=== PATIENT | female | born 2000 | race African-American/Black ===

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

== ENCOUNTER 2018-05-23 20:02 | Inpatient (IN) | payer MEDICAID ==
[2018-05-23 21:02] LABS: APPEARANCE,URINE CLOUDY; BILIRUBIN,URINE NEGATIVE (NEGATIVE); COLOR,URINE YELLOW; GLUCOSE, URINE NEGATIVE (NEGATIVE); KETONES,URINE NEGATIVE (NEGATIVE); LEUKOCYTE ESTERASE,URINE MODERATE (NEGATIVE); NITRITE,URINE NEGATIVE (NEGATIVE); PROTEIN,URINE 30 mg/dL (NEGATIVE); URINE SPECIFIC GRAVITY 1.028
[2018-05-23 21:19] LABS: URINE AMPHETAMINES SCREEN NEGATIVE; URINE BARBITURATES SCREEN NEGATIVE; URINE BENZODIAZEPINES SCREEN NEGATIVE; URINE COCAINE SCREEN NEGATIVE; URINE MARIJUANA (THC) SCREEN NEGATIVE; URINE METHADONE SCREEN NEGATIVE; URINE PHENCYCLIDINE SCREEN NEGATIVE
[2018-05-23] MEDS ORDERED: RINGERS SOLUTION,LACTATED 1,000 ML IV ONE (23:09)
[2018-05-23] MEDS ORDERED: RINGERS SOLUTION,LACTATED 1,000 ML IV PRN (23:09)
--- NOTE | 2018-05-23 23:30 | Admission Physical ---
Datetime Report Generated by CPN: 05/23/2018 23:30 CURRENT ADMISSION Chief Complaint: Uterine Contractions Indication for Induction: Not Applicable Admit Impression : Term, Intrauterine ; Active Labor Admit Plan: Admit to Unit; Initiate Labor Protocol ALLERGIES Medication Allergies: No Known Allergies (12/07/2017) OBSTETRICAL HISTORY EDC: 05/18/2018 00:00 : 1 Para: 0 Gestational Diabetes: No Rh Sensitization: No Incompetent Cervix: No MEGGAN: No Infertility: No ART Treatment: No Uterine Anomaly: No IUGR: No Hx Previous C/S: No Macrosomia: No Hx Loss/Stillborn: No PIH: No Hx : No Placenta Previa/Abruption: No Depression/PP Depression: No PTL/PROM: No Post Hemorrhage: No Obstetrical History Comments: g1- current - late care at 25 weeks SEE RECORDS Alcohol: No Marijuana : No Cocaine: No Other Illicit Drugs: No Cigarettes: Never Smoker. 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 Surgery: No Heart Disease: No Hosp/Surgery: No Autoimmune Disorder: No Anesthetic Complications: No Kidney Disease: No Abnormal Pap Smear: No Neuro/Epilepsy: No Psychiatric Disorders: No Other Medical Diseases: No Hepatitis/Liver Disease: No Significant Family History: No Varicosities/Phlebitis: No Trauma/Violence : No Thyroid Dysfunction: No INFECTIOUS HISTORY Gonorrhea: No Genital Herpes: No Chlamydia: No Tuberculosis: No Syphilis: No Hepatitis: No HIV/AIDS Exposure: No Rash or Viral Illness: No HPV: No PHYSICAL EXAM General: Normal HEENT: Normal Neurologic: Normal Thyroid: Deferred Heart: Normal Lungs: Normal Breast: Deferred Back: Normal Abdomen: Normal Genitourinary Exam: Normal Extremities: Normal DTRs: Normal Pelvic Type: Adequate Vital Signs: Reviewed VAGINAL EXAM Dilatation: 5 Effacement: 90 Station: 0 Contraction Comments: q 2-3 MEMBRANES Membranes: Intact FETUS A EGA: 40.5 Monitoring: External US FHR- Baseline: 125 Variability: Moderate 6-25bpm Accelerations: 15X15 Decelerations: None FHR Category: Category I Presentation: Vertex Admit Comment: 17yo at 40+5ega dated by 25wks US. late to care at 25wks. her mother is admitted to floor above and she was begining to have contractions. She was walking and changed her cervix from 3 to 5 cm. GBS negative. She desires epidural. Anticipate . Augment if needed. PLANS FOR LABOR AND DELIVERY Labor and Delivery: None; Cord Blood Banking Pain Management: Natural Feeding Preference: Formula Benefit of Breast Feed Discussed: Yes Circumcision: Yes INFORMED CONSENT Informed Consent Obtained: Vaginal Delivery; Risks, Benefits and Alternatives Discussed Signature: with User ID: [email or web address]
[2018-05-23 23:34] LABS: ABSOLUTE EOSINOPHILS # (AUTO) 0.1 10^3/uL (0.0-0.6); ABSOLUTE LYMPHOCYTES (AUTO) 1.3 10^3/uL (0.5-4.7); ABSOLUTE MONOCYTES (AUTO) 0.7 10^3/uL (0.1-1.4); ABSOLUTE NEUT (AUTO) 11.9 10^3/uL (1.7-8.2); BASOPHILS % (AUTO) 0.1 % (0-2); EOSINOPHILS % (AUTO) 0.6 % (0-6); HEMATOCRIT 35.6 % (36.0-47.0); HEMOGLOBIN 12.3 g/dL (12.0-15.5); LYMPHOCYTES % (AUTO) 9.3 % (13-45); MEAN CORPUSCULAR HEMOGLOBIN 30.7 pg (27.0-33.4); MEAN CORPUSCULAR HGB CONC 34.6 g/dL (32.0-36.0); MEAN CORPUSCULAR VOLUME 89 fl (80-97); MONOCYTES % (AUTO) 5.1 % (3-13); PLATELET COUNT 203 10^3/uL (150-450); RED BLOOD COUNT 4.01 10^6/uL (3.72-5.28); RED CELL DISTRIBUTION WIDTH 13.2 % (11.5-14.0); SEGMENTED NEUTROPHILS % (AUTO) 84.9 % (42-78); TOTAL CELLS COUNTED % (AUTO) 100 %; WHITE BLOOD COUNT 13.9 10^3/uL (4.0-10.5)
[2018-05-23] MEDS ORDERED: LIDOCAINE 1% INJ-PF (10 MG/ML) 30 ML SDV ONE (23:34)
[2018-05-23] MEDS ORDERED: BUPIVACAINE HCL 0.25 % INJ/PF (2.5 MG/1 ML) 30 ML VIAL ONE (23:34)
[2018-05-23] MEDS ORDERED: OXYTOCIN/NORMAL SALINE 20 UNIT/1,000 ML RTUINJ ONE (23:34)
[2018-05-23] MEDS ORDERED: PHENYLEPHRINE HCL INJ/PF 10 MG/1 ML SDV ONE (23:34)
[2018-05-23] MEDS ORDERED: MISOPROSTOL 0.2 MG TABLET ONE (23:34)
[2018-05-23] MEDS ORDERED: FENTANYL CITRATE INJ/PF 100 MCG/2 ML AMPUL ONE (23:34)
[2018-05-23] MEDS ORDERED: FENTANYL/BUPIVACAINE/NS/PF 300 MCG/150 ML RTUINJ EPI ONE (23:34)
[2018-05-23] MEDS ORDERED: EPHEDRINE SULFATE INJ 50 MG/1 ML AMPULE ONE (23:34)
[2018-05-23] MEDS ORDERED: OXYTOCIN 10 UNIT/ML VIAL ONE (23:34)
[2018-05-23] MEDS ORDERED: LIDOCAINE 2%/EPINEPHRINE INJ 20 ML VIAL ONE (23:52)
[2018-05-23] MEDS ORDERED: LIDOCAINE 1.5%/EPINEPHRINE INJ-PF 30 ML SDV ONE (23:57)
[2018-05-24] MEDS ORDERED: PROMETHAZINE HCL INJ 25 MG/1 ML VIAL IV PRN (01:44)
[2018-05-24] MEDS ORDERED: ACETAMINOPHEN 325 MG TABLET PO PRN (01:44)
[2018-05-24] MEDS ORDERED: DIPHENHYDRAMINE HCL 25 MG CAPSULE PO PRN (01:44)
[2018-05-24] MEDS ORDERED: PSEUDOEPHEDRINE HCL 30 MG TABLET PO PRN (01:44)
[2018-05-24] MEDS ORDERED: ACETAMINOPHEN WITH CODEINE #3 TABLET PO PRN ×2 (01:44)
[2018-05-24] MEDS ORDERED: BENZOCAINE/MENTHOL AEROSOL SPRAY 56 ML TOP PRN (01:44)
[2018-05-24] MEDS ORDERED: MEASLES,MUMPS&RUBELLA VACC/PF 0.5 ML VIAL SUBCUT PRN (01:44)
[2018-05-24] MEDS ORDERED: MAGNESIUM HYDROXIDE SUSP 30 ML UDCUP PO PRN (01:44)
[2018-05-24] MEDS ORDERED: PROMETHAZINE HCL 25 MG SUPP.RECT PR PRN (01:44)
[2018-05-24] MEDS ORDERED: ZOLPIDEM TARTRATE 5 MG TABLET PO PRN (01:44)
[2018-05-24] MEDS ORDERED: DIBUCAINE 1% OINTMENT 28 GM TP PRN (01:44)
[2018-05-24] MEDS ORDERED: NA PHOS,M-B/NA PHOS,DI-BA (ADULT) 133 ML ENEMA PR PRN (01:44)
[2018-05-24] MEDS ORDERED: DIPH/PERTUSS(ACELL)/TETANUS VAC/PF 0.5 ML SYR (>=10YO) IM PRN (01:44)
[2018-05-24] MEDS ORDERED: GLYCERIN/WITCH HAZEL LEAF 1 EACH MED..PAD TP PRN (01:44)
[2018-05-24] MEDS ORDERED: OXYTOCIN/NORMAL SALINE 20 UNIT/1,000 ML RTUINJ IV PRN (01:44)
[2018-05-24] MEDS ORDERED: PROMETHAZINE HCL 25 MG TABLET PO PRN (01:44)
--- NOTE | 2018-05-24 02:22 | Warning Signs in Babies ---
VOD Warning Signs Datetime Report Generated by [facility]: 05/24/2018 02:21 VOD#608 -Warning Signs in Babies: Needs to be viewed. (05/23/2018 20:25:Shakila Milton RN)
--- NOTE | 2018-05-24 03:27 | Delivery Summary ---
Del Sum A-C Datetime Report Generated by CPN: 05/24/2018 03:27 DELIVERY PERSONNEL DELIVERY PERSONNEL: [id number] Delivery Doctor:: Kiley Hurley MD Labor and Delivery Nurse:: Iesha Flores RN Labor and Delivery Nurse:: Shakila Milton RN Nursery Nurse:: Li Levine RN Nursery Nurse:: Trish Graham RN Farm General Manager/EMPLOYEE DEVELOPMENT DIRECTOR: Joana Sebastian, ST MATERNAL INFORMATION Delivery Anesthesia: Epidural Medications After Delivery: Pitocin Drip 20 Units/1000ml NSS Provider Comments: VMI delivered in Direct OA presenation. NO nuchal cord. Shoulders and body delivered without difficulty. Noted meconium at delivery of the head. Cord doubly clamped and cut and infant to maternal abdomen with nursery care for NRP. Placenta delivered intact spontaneously. FF at U. Left labial laceration repaired in usual fashion. Good hemostasis. Baby to Nursery for evaluation. Mother stable upon provider leaving the room. LABOR SUMMARY EDC: 05/18/2018 00:00 No. Babies in Womb: 1 Attempted: No Labor Anesthesia: Epidural LABOR INFORMATION Reason for Induction: Not Applicable Onset of Labor: 05/23/2018 23:04 Complete Dilatation: 05/24/2018 00:34 Other Ripening Agents: NA Oxytocin: N/A Group B Beta Strep: negative Steroids Given: None Reason Steroids Not Administered: Not Applicable MEMBRANES Membranes Rupture Method: Artificial Rupture of Membranes: 05/24/2018 00:20 Length of Rupture (hr): 1.18 Amniotic Fluid Color: Clear Amniotic Fluid Amount: Moderate Amniotic Fluid Odor: Normal STAGES OF LABOR Stage 1 hr: 1 Stage 1 min: 30 Stage 2 hr: 0 Stage 2 min: 57 Stage 3 hr: 0 Stage 3 min: 3 Total Time in Labor hr: 2 Total Time in Labor min: 30 VAGINAL DELIVERY Episiotomy: None Laceration #1: Vaginal Laceration Extension #1: N/A Laceration Repair: Yes Laceration Repair Note: left labial laceration repaired in usual fashion with good hemostasis Sponge Count Correct: Yes Sharps Count Correct: Yes CSECTION DELIVERY Primary Indication: N/A Secondary Indication: N/A CSection Incidence: N/A Labor: N/A Elective: N/A CSection Incision: N/A BABY A INFORMATION Infant Delivery Date/Time: 05/24/2018 01:31 Method of Delivery: Vaginal Born in Route : No : N/A Forceps: N/A Vacuum Extraction: N/A Shoulder Dystocia : No PRESENTATION/POSITION BABY A Presentation: Cephalic Cephalic Presentation: Vertex Vertex Position: direct OA Breech Presentation: N/A PLACENTA INFORMATION BABY A Placenta Delivery Time : 05/24/2018 01:34 Placenta Method of Delivery: Spontaneous Placenta Status: Delivered SCORES BABY A Heart Rate 1 min: >100 bpm Resp Effort 1 min: Slow, Irregular Reflex Irritability 1 min: Grimace Muscle Tone 1 min: Flaccid Color 1 min: Blue/Pale SCORE 1 MIN: 4 Heart Rate 5 min: >100 bpm Resp Effort 5 min: Slow, Irregular Reflex Irritability 5 min: Grimace Muscle Tone 5 min: Some Flexion of Extremities Color 5 min: Body [place], Extremities Blue SCORE 5 MIN: 6 Heart Rate 10 min: >100 bpm Resp Effort 10 min: Good Cry Reflex Irritability 10 min: Cough or Sneeze or Pulls Away Muscle Tone 10 min: Active Motion Color 10 min: Body [place], Extremities Blue SCORE 10 MIN: 9 INFORMATION BABY A Gestational Age at Delivery: 40.6 Gestational Status: Full Term- 39- 40.6 Weeks Outcome : Liveborn Condition : Stable Infant Sex: Male IDENTIFICATION BABY A Verification Date/Time: 05/24/2018 02:25 ID Band Number: [id number] Mother's Name Verified: Yes RN Verifying : Sandra, A RN Additional Verifying Personnel: Evelyn Herman RN WEIGHT/LENGTH BABY A Birthweight (gm): 2830 Weight (lb): 6 Infant Weight (oz): 4 Infant Length (in): 20.50 Length (cm): 52.07 CORD INFORMATION BABY A No. Cord Vessels: 3 Nuchal Cord : N/A Cord Blood Taken: Yes-For Storage (Mom's Blood type +) Infant Suction: Mouth; Nose ASSESSMENT BABY A Complications: None Physical Findings at Delivery: Caput Succedaneum; Molding of the Head Physical Findings- Other: See full nursery prevocational/rehabilitation counselor Respirations: Grunting; Intercostal Retractions; Nasal Flaring Skin to Skin: No Care By: Mariann Levine RN Transferred To: Nursery BABY B INFORMATION : N/A SIGNATURES Signature: with User ID: [email or web address]
[2018-05-24] MEDS: IBUPROFEN 800 MG TABLET PO SCH ×3 (05:06→22:01)
--- NOTE | 2018-05-24 10:40 | PDOC PROGRESS REPORT ---
Subjective-OB Progress Note for:: 05/24/18 - Delivery Day, pt unable to void and needed I&O cath at 0500, with 800 ml urine obtained. Still has not voided, Pt encouraged to try to sit down, relax and void within the next hour. Doing well otherwise. B+, bottlefeeding Physical Exam (OB) Vital Signs: Temp Pulse Resp BP Pulse Ox 97.3 F 96 H 18 116/69 98 05/24/18 04:10 05/24/18 04:10 05/24/18 04:10 05/24/18 04:10 05/24/18 04:10 Intake & Output 05/23/18 05/24/18 05/25/18 06:59 06:59 06:59 Output Total 800 Balance -800 - General General Appearance: Appears well, Alert In distress: None - PIH/Pre-Eclampsia DTR's: 2 + Clonus: Negative Headache: Absent Epigastric Pain: No Visual Changes: No - Lochia Lochia Amount: Scant < 10 ml Lochia Color: Rubra/Red - Abdomen Description: Tender, Soft Hernia Present: No Fundal Description: Firm, Midline Describe if Not Midline: left of midline Fundal Height: u/u - u/2 - Respiratory Respiratory Status: No respiratory distress - Abdominal Distension: No distension - Genitourinary Genitourinary Note: to void - Extremities Upper extremity: Normal inspection Lower extremities: Normal inspection - Neurological Cognition: Normal Orientation: AAOx4 - Psychological Associated symptoms: Normal affect, Normal mood - Skin Skin Temperature: Warm Skin Moisture: Dry Objective-Diagnostic Laboratory: 05/23/18 23:15 05/23/18 05/23/18 05/23/18 20:15 23:15 23:15 WBC 13.9 H RBC 4.01 Hgb 12.3 Hct 35.6 L MCV 89 MCH 30.7 MCHC 34.6 RDW 13.2 Plt Count 203 Seg Neutrophils % 84.9 H Lymphocytes % 9.3 L Monocytes % 5.1 Eosinophils % 0.6 Basophils % 0.1 Absolute Neutrophils 11.9 H Absolute Lymphocytes 1.3 Absolute Monocytes 0.7 Absolute Eosinophils 0.1 Absolute Basophils 0.0 Urine Color YELLOW Urine Appearance CLOUDY Urine pH 6.0 Ur Specific [place] 1.028 Urine Protein 30 H Urine Glucose (UA) NEGATIVE Urine Ketones NEGATIVE Urine Blood LARGE H Urine Nitrite NEGATIVE Ur Leukocyte Esterase MODERATE H Blood Type B POSITIVE Antibody Screen NEGATIVE Assessment and Plan(PN) - Assessment and Plan (1) Active labor at term Is this a current diagnosis for this admission?: Yes (2) Late care affecting Qualifiers: Trimester: unspecified trimester Qualified Code(s): O09.30 - Supervision of with insufficient care, unspecified trimester Is this a current diagnosis for this admission?: Yes (3) Meconium in amniotic fluid Is this a current diagnosis for this admission?: Yes - Time Spent with Patient Time with patient: Less than 15 minutes Smoking Education Provided: Over 3 minutes - Disposition Within: within 48 hours - encouraged pt to attempt to void, otherwise will need to be strait cathed again. May need Reyes cath replaced if unable to void during first shift.
[2018-05-24] MEDS: SENNOSIDES/DOCUSATE 8.6-50 MG 1 EACH TABLET PO SCH (11:01)
[2018-05-24] MEDS: FERROUS SULFATE 325 MG TABLET PO SCH ×2 (11:01→18:41)
[2018-05-24] MEDS: DOCUSATE SODIUM 100 MG CAPSULE PO SCH ×2 (11:01→18:41)
[2018-05-24] MEDS: FAMOTIDINE 20 MG TABLET PO SCH ×2 (11:01→22:03)
[2018-05-24] MEDS: PRENATAL VITAMIN W DHA CAPSULE PO SCH (11:01)
[2018-05-25] MEDS: IBUPROFEN 800 MG TABLET PO SCH ×3 (05:26→21:47)
[2018-05-25 08:27] LABS: HEMATOCRIT 32.1 % (36.0-47.0); MEAN CORPUSCULAR HGB CONC 34.3 g/dL (32.0-36.0); MEAN CORPUSCULAR VOLUME 91 fl (80-97); PLATELET COUNT 176 10^3/uL (150-450); RED BLOOD COUNT 3.55 10^6/uL (3.72-5.28); RED CELL DISTRIBUTION WIDTH 13.3 % (11.5-14.0); WHITE BLOOD COUNT 11.8 10^3/uL (4.0-10.5)
[2018-05-25] MEDS: FAMOTIDINE 20 MG TABLET PO SCH ×2 (10:18→21:47)
[2018-05-25] MEDS: DOCUSATE SODIUM 100 MG CAPSULE PO SCH ×2 (10:18→18:43)
[2018-05-25] MEDS: SENNOSIDES/DOCUSATE 8.6-50 MG 1 EACH TABLET PO SCH (10:18)
[2018-05-25] MEDS: FERROUS SULFATE 325 MG TABLET PO SCH ×2 (10:18→18:43)
[2018-05-25] MEDS: PRENATAL VITAMIN W DHA CAPSULE PO SCH (10:18)
--- NOTE | 2018-05-25 10:51 | PDOC PROGRESS REPORT ---
Subjective-OB Progress Note for:: 05/25/18 - PP Day #1, doing well, voiding w/out difficulty now. bottlefeeding, B+ Physical Exam (OB) Vital Signs: Temp Pulse Resp BP Pulse Ox 98.0 F 76 16 125/87 H 100 05/25/18 08:35 05/25/18 08:35 05/25/18 08:35 05/25/18 08:35 05/25/18 08:35 Intake & Output 05/24/18 05/25/18 05/26/18 06:59 06:59 06:59 Intake Total 300 Output Total 800 Balance -800 300 - General General Appearance: Appears well, Alert In distress: None - PIH/Pre-Eclampsia DTR's: 2 + Clonus: Negative Headache: Absent Epigastric Pain: No Visual Changes: No - Lochia Lochia Amount: Scant < 10 ml Lochia Color: Rubra/Red - Abdomen Description: Tender, Soft Hernia Present: No Fundal Description: Firm, Midline Describe if Not Midline: left of midline Fundal Height: u/u - u/2 - Respiratory Respiratory Status: No respiratory distress - Abdominal Distension: No distension Tenderness: Nontender - Genitourinary Genitourinary Note: voiding - Extremities Upper extremity: Normal inspection Lower extremities: Normal inspection - Neurological Cognition: Normal Orientation: AAOx4 - Psychological Associated symptoms: Normal affect, Normal mood - Skin Skin Temperature: Warm Skin Moisture: Dry Objective-Diagnostic Laboratory: 05/25/18 07:30 05/25/18 07:30 WBC 11.8 H RBC 3.55 L Hgb 11.0 L Hct 32.1 L MCV 91 MCH 31.0 MCHC 34.3 RDW 13.3 Plt Count 176 Assessment and Plan(PN) - Assessment and Plan (1) Active labor at term Is this a current diagnosis for this admission?: Yes (2) Late care affecting Qualifiers: Trimester: unspecified trimester Qualified Code(s): O09.30 - Supervision of with insufficient care, unspecified trimester Is this a current diagnosis for this admission?: Yes (3) Meconium in amniotic fluid Is this a current diagnosis for this admission?: Yes (4) Normal course Is this a current diagnosis for this admission?: Yes - Time Spent with Patient Time with patient: Less than 15 minutes Smoking Education Provided: Over 3 minutes Medications reviewed and adjusted accordingly: Yes - Disposition Anticipated Discharge: Home Within: within 24 hours
[2018-05-26] MEDS: IBUPROFEN 800 MG TABLET PO SCH ×2 (06:46→14:01)
--- NOTE | 2018-05-26 09:39 | PDOC PROGRESS REPORT ---
Subjective-OB Progress Note for:: 05/26/18 Subjective: doing well, no c/o, ready to go home Physical Exam (OB) Vital Signs: Temp Pulse Resp BP Pulse Ox 97.9 F 78 16 109/75 100 05/26/18 07:40 05/26/18 07:40 05/26/18 07:40 05/26/18 07:40 05/26/18 07:40 Intake & Output 05/25/18 05/26/18 05/27/18 06:59 06:59 06:59 Intake Total 300 Balance 300 - PIH/Pre-Eclampsia DTR's: 2 + Clonus: Negative Headache: Absent Epigastric Pain: No Visual Changes: No - Lochia Lochia Amount: Scant < 10 ml Lochia Color: Rubra/Red - Abdomen Description: Tender, Soft Hernia Present: No Fundal Description: Firm, Midline Describe if Not Midline: left of midline Fundal Height: u/u - u/2 Objective-Diagnostic Laboratory: 05/25/18 07:30 05/23/18 20:15 Clean Catch Midstream Urine Culture - Final Mixed Urogenital Shawna Assessment and Plan(PN) - Assessment and Plan (1) Normal course Is this a current diagnosis for this admission?: Yes (2) Meconium in amniotic fluid Is this a current diagnosis for this admission?: Yes (3) Active labor at term Is this a current diagnosis for this admission?: Yes (4) Late care affecting Qualifiers: Trimester: unspecified trimester Qualified Code(s): O09.30 - Supervision of with insufficient care, unspecified trimester Is this a current diagnosis for this admission?: Yes (5) Vaginal delivery Is this a current diagnosis for this admission?: Yes - Time Spent with Patient Time with patient: Less than 15 minutes Smoking Education Provided: Over 3 minutes Medications reviewed and adjusted accordingly: Yes - Disposition Anticipated Discharge: Home Within: within 24 hours
--- NOTE | 2018-05-26 09:43 | PDOC DISCHARGE SUMMARY ---
Final Diagnosis Discharge Date: 05/26/18 - Final Diagnosis (1) Normal course Is this a current diagnosis for this admission?: Yes (2) Meconium in amniotic fluid Is this a current diagnosis for this admission?: Yes (3) Active labor at term Is this a current diagnosis for this admission?: Yes (4) Late care affecting Is this a current diagnosis for this admission?: Yes (5) Vaginal delivery Is this a current diagnosis for this admission?: Yes Discharge Data - Discharge Medication Home Medications: Amoxicillin 1 tab PO TID #30 tab 03/26/15 Loratadine 10 mg PO DAILY 03/26/15 Vit,Calc78/Iron/Folic [Prenatabs FA Tablet] 1 each PO DAILY #30 tablet 12/07/17 Gestational Age: 40.6 Reason(s) for Admission: Onset of Labor Procedures: NST, Ultrasound Intrapartum Procedure(s): Spontaneous Vaginal Delivery Complication(s): Laceration-Labial Laceration-Degree: 1st - Diagnosis Test Laboratory: Temp Pulse Resp BP Pulse Ox 97.9 F 78 16 109/75 100 05/26/18 07:40 05/26/18 07:40 05/26/18 07:40 05/26/18 07:40 05/26/18 07:40 05/23/18 05/23/18 05/25/18 20:15 23:15 07:30 RBC 4.01 3.55 L Hgb 12.3 11.0 L Hct 35.6 L 32.1 L Urine Opiates Screen NEGATIVE - Discharge information/Instructions Discharge Activity: Activity As Tolerated, No Lifting Over 10 Pounds, No Lifting/Push/Pulling, Pelvic Rest Discharge Diet: As Tolerated, Regular Disposition: HOME, SELF-CARE Follow up with: [facility] in: 2, Weeks
[2018-05-26] MEDS: DOCUSATE SODIUM 100 MG CAPSULE PO SCH (10:22)
[2018-05-26] MEDS: SENNOSIDES/DOCUSATE 8.6-50 MG 1 EACH TABLET PO SCH (10:23)
[2018-05-26] MEDS: FERROUS SULFATE 325 MG TABLET PO SCH (10:23)
[2018-05-26] MEDS: FAMOTIDINE 20 MG TABLET PO SCH (10:23)
[2018-05-26] MEDS: PRENATAL VITAMIN W DHA CAPSULE PO SCH (10:23)
[2018-05-26 11:21] VITALS: BP 109/74
== END 2018-05-26 15:20 | disposition home or self-care (01) | DRG 807 ==
LOC: LC 20:02 → LR 23:10 → 2S 05-24 04:12
PROVIDERS: ADMIT Student in an Organized Health Care Education/Training Program; ATTEND Student in an Organized Health Care Education/Training Program
PROC: 10E0XZZ Delivery of Products of Conception, External Approach (ICD-10-PCS; principal; 2018-05-24)
PROC: 0UQMXZZ Repair Vulva, External Approach (ICD-10-PCS; 2018-05-24)
PROC: 10907ZC Drainage of Amniotic Fluid, Therapeutic from Products of Conception, Via Natural or Artificial Opening (ICD-10-PCS; 2018-05-24)
PROC: 4A1HX4Z Monitoring of Products of Conception, Cardiac Electrical Activity, External Approach (ICD-10-PCS; 2018-05-24)
DX: O77.0 Labor and delivery complicated by meconium in amniotic fluid (principal); Z37.0 Single live birth; O70.0 First degree perineal laceration during delivery; Z3A.40 40 weeks gestation of pregnancy
CPT/HCPCS: 36415; 59025; 80307; 81005; 85025; 85027; 86592; 86850; 86900; 86901; 87086; 88307; J2370; J2590; J3010; J3490

== ENCOUNTER 2018-11-16 09:43 | Emergency (ER) | payer MEDICAID ==
[2018-11-16] MEDS ORDERED: AMOXICILLIN TR/POT CLAVULANATE 500-125 MG TAB PO ONE (10:27)
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
[2018-11-16] MEDS ORDERED: LIDOCAINE 1% INJ-PF (10 MG/ML) 30 ML SDV INJ ONE (10:47)
[2018-11-16] MEDS ORDERED: DIPH/PERTUSS(ACELL)/TETANUS VAC/PF 0.5 ML SYR (>=10YO) IM ONE (10:48)
[2018-11-16 11:40] VITALS: BP 113/65
== END 2018-11-16 11:41 | disposition home or self-care (01) ==
LOC: ER 09:43
DX: S61.213A Laceration without foreign body of left middle finger without damage to nail, initial encounter (principal); W25.XXXA Contact with sharp glass, initial encounter; Z23 Encounter for immunization
CPT/HCPCS: 99282; 90471; 90715; 12001; J3490